=== PATIENT | male | born 1985 | race Caucasian/White ===

== ENCOUNTER 2018-02-10 19:30 | Emergency (ER) | payer OTHER ==
[~2018-02-10] VITALS: Ht 167.6 cm; Wt 81.6 kg
[2018-02-10 19:53] VITALS: BP 147/85
--- NOTE | 2018-02-10 19:58 | Emergency Room Report ---
History of Present Illness General Chief Complaint: Headache Source: Patient Present Illness HPI Patient has a history of migraine headaches. However patient has not had a migraine headache for over 2 years. Patient states that he began to develop acute onset of migraine headache starting early this morning. It progressively became worse. It was a gradual onset. He has photophobia associate nausea and vomiting. He denies any neck pain. Denies any fever. Patient has not had a headache this badly before. This seems to be worse than usual. He took some Imitrex at the onset of the headache but symptoms did not seem to improve. He denies any chest pain shortness of breath. No history of trauma. Symptoms noted to be severe.No other modifying factors. No other associated signs and symptoms. No other complaints were noted. Of note patient has not had recent radiographic studies. Allergies: Uncoded Allergies: DURACEF (Allergy, Unknown, 02/10/18) Patient History Past Medical History: migraines Past Surgical History: none Pertinent Family History: none Social History: Denies: smoking, alcohol use, drug use Reviewed Nursing Documentation: PMH: Agreed; PSxH: Agreed Nursing Documentation-PMH Past Medical History: No History, Except For Hx Hypertension: Yes Review of Systems All Other Systems: negative except mentioned in HPI Physical Exam Vital Signs Date Time Temp Pulse Resp B/P (MAP) Pulse Ox O2 Delivery O2 Flow Rate FiO2 02/10/18 19:41 99.1 94 16 152/99 96 Room Air 99.1 Sp02 EP Interpretation: reviewed, normal General Appearance: alert, moderate distress Head: normocephalic, atraumatic Eyes: bilateral eye normal inspection ENT: normal ENT inspection, hearing grossly normal, normal voice Neck: normal inspection, full range of motion, supple, no bony tend Respiratory: normal inspection, lungs clear, normal breath sounds, no respiratory distress, no retraction, no wheezing Cardiovascular #1: regular rate, rhythm, no edema Gastrointestinal: normal inspection, normal bowel sounds, non tender, soft, no guarding, no hernia Genitourinary: no CVA tenderness Musculoskeletal: normal inspection, back normal, normal range of motion Neurologic: normal inspection, alert, responsive, speech normal Psychiatric: normal inspection, judgement/insight normal, mood/affect normal Skin: normal inspection, normal color, no rash Medical Decision Making Diagnostic Impression: Primary Impression: Headache ER Course Patient presents emergency department today complaining of a headache. Differential considerations include acute intracranial injury, migraine headache , stroke just name a few. Given patient's presentation the fact that his headaches worsen usual and he has not had a recent CAT scan of felt that this is a typical headache for him and he required a CAT scan. MIPS: Patient presents complaining of a headache. This is a typical headache and not usual headache. Therefore CT scan was performed because this is a different headache than usual. Patient's head CT was interpreted radiology negative. Patient was given pain medications with improvement in symptoms.Given the patient feels much better, and he had a negative workup, I feel the patient can be discharged home.Patient is advised to follow up with primary doctor in 2-3 days and return the emergency room for any worsening symptoms and as needed. Last Vital Signs Date Time Temp Pulse Resp B/P (MAP) Pulse Ox O2 Delivery O2 Flow Rate FiO2 02/10/18 19:41 99.1 94 16 152/99 96 Room Air 99.1 Status: improved Disposition: HOME, SELF-CARE Condition: Stable Scripts Hydrocodone Bit/Acetaminophen 5-325* (NORCO 5-325*) 1 Each Tablet 1-2 TAB ORAL Q6H PRN for For Pain, #10 TAB 0 Refills Prov: Sylvester Ferro MD 02/10/18 Sylvester Ferro MD Feb 10, 2018 19:58
[2018-02-10] MEDS ORDERED: Metoclopramide 10mg/2ml Inj IVP ONE (20:00)
[2018-02-10] MEDS ORDERED: DiphenhydrAMINE 50mg/ml Inj IVP ONE (20:00)
[2018-02-10] MEDS ORDERED: Ketorolac 30mg Inj IV ONE (20:00)
[2018-02-10] MEDS ORDERED: NORCO 5-325 TA1 EACH ORAL (20:53)
[2018-02-10] MEDS ORDERED: Morphine Sulfate 2mg/ml Inj IVP ONE (21:00)
[2018-02-10 21:24] VITALS: BP 147/85
--- NOTE | 2018-02-11 09:49 | Diagnostic Imaging Report ---
Indications: Pain, history of migraine headaches, acute onset of migraine earlier this morning Technique: Spiral acquisitions obtained through the brain. Angled axial and coronal 5 x 5 mm slices were reconstructed. Total dose length product 1400.31 mGycm. CTDI vol(s) 70.38 mGy. Dose reduction achieved using automated exposure control Comparison: None. Findings: No acute intracranial hemorrhage nor edema. No mass effect nor midline shift. There is ethmoid sinus mucosal disease. The mastoids are clear. The calvarium is intact Impression: Negative for acute intracranial bleed or mass effect Minimal sinus disease This agrees with the preliminary interpretation provided overnight by Dr. Rosen The CT scanner at [facility] is accredited by the [employer] and the scans are performed using protocols designed to limit radiation exposure to as low as reasonably achievable to attain images of sufficient resolution adequate for diagnostic evaluation.
== END 2018-02-10 21:24 | disposition home or self-care (01) ==
LOC: EMR 19:49
DX: R51 Headache (principal); I10 Essential (primary) hypertension
CPT/HCPCS: 70450; 96361; 96374; 96375; 99284; J1200; J1885; J2270; J2765

== ENCOUNTER 2018-02-12 18:22 | Emergency (ER) | payer OTHER ==
[~2018-02-12] VITALS: Ht 167.6 cm; Wt 79.4 kg
[~2018-02-12 18:22] MED LIST: NORCO 5-325 TA1 EACH ORAL
[2018-02-12 18:40] VITALS: BP 146/80
[2018-02-12] MEDS ORDERED: Morphine Sulfate 4mg/ml Inj (IV/IM USE ONLY) IVP ONE (19:00)
[2018-02-12] MEDS ORDERED: Metoclopramide 10mg/2ml Inj IVP ONE (19:00)
[2018-02-12] MEDS ORDERED: Ketorolac 30mg Inj IV ONE (19:00)
--- NOTE | 2018-02-12 19:03 | Emergency Room Report ---
History of Present Illness General Chief Complaint: Headache Source: Patient Present Illness HPI 32-year-old male presents ED complaining of headache. Was seen 2 days ago in ER. Was treated for migraine and subsequently discharge. Patient was called back by ER physician to return to ED as his headache was not improving. History of migraines. States he normally takes Imitrex but states it is not helping. Pain is frontal, throbbing, 6 out of 10, nonradiating. Denies photophobia or blurry vision. Denies nausea or vomiting. Denies any neck stiffness. No other aggravating relieving factors. Denies any other associated symptoms Allergies: Uncoded Allergies: DURACEF (Allergy, Unknown, 02/10/18) Patient History Past Medical History: HTN, migraines Past Surgical History: none Pertinent Family History: none Social History: Denies: smoking, alcohol use, drug use Immunizations: UTD Reviewed Nursing Documentation: PMH: Agreed; PSxH: Agreed Nursing Documentation-PMH Past Medical History: No Stated History Hx Hypertension: Yes Review of Systems All Other Systems: negative except mentioned in HPI Physical Exam Vital Signs Date Time Temp Pulse Resp B/P (MAP) Pulse Ox O2 Delivery O2 Flow Rate FiO2 02/12/18 18:33 98.5 77 15 146/80 96 Room Air 98.4 Sp02 EP Interpretation: reviewed, normal General Appearance: normal inspection, non-toxic Head: normocephalic Eyes: bilateral eye normal inspection, bilateral eye PERRL ENT: normal ENT inspection Neck: full range of motion, no meningismus, no bony tend, supple/symm/no masses Respiratory: chest non-tender, lungs clear, normal breath sounds, speaking full sentences Cardiovascular #1: normal inspection Gastrointestinal: normal inspection Rectal: deferred Genitourinary: no CVA tenderness Musculoskeletal: normal inspection Neurologic: alert, oriented x3, responsive, toy painter III-XII nml as tested, motor strength/tone normal, sensory intact, speech normal Psychiatric: judgement/insight normal, memory normal, mood/affect normal, no suicidal/homicidal ideation Skin: normal inspection Lymphatic: normal inspection Medical Decision Making Diagnostic Impression: Primary Impression: Migraine Qualified Codes: G43.909 - Migraine, unspecified, not intractable, without status migrainosus ER Course Hospital Course 32 yo M presents to ED c/o headache. Was here 2 days ago but a migraine persisted Differential diagnoses include: tension headache, migraine, dehydration, intracranial bleed Clinical course Patient placed on stretcher. After initial history and physical I ordered labs , IV fluids, Reglan, Toradol and MRI Brain Labs reviewed- electrolytes okay, no leukocytosis, hemoglobin/hematocrit stable MRI Brain unremarkable Upon reassessment patient states pain has improved. Patient feels better wishes to go home. No fever. No photophobia. No nuchal rigidity. We will switch to ibuprofen, Fioricet. Stopped [place] as patient states it is not helping. Patient has an appointment with his PMD next week for neurology referral i. I feel this is a highly complex case requiring extensive working including EKG/Rhythm strip, Xray/CT/US, Blood/urine lab work, repeat exams while in ED, and administration of strong opiates/narcotics for pain control, admission to hospital or close patient follow up. Diagnosis - migraine stable and discharged to home with Rx Fioricet, Motrin. f/up with PMD/ neurology. return to ED if symptoms recur/worsen. Labs Test 02/12/18 19:00 White Blood Count 5.4 K/UL (4.8-10.8) Red Blood Count 5.65 M/UL (4.70-6.10) Hemoglobin 16.6 G/DL (14.2-18.0) Hematocrit 48.3 % (42.0-52.0) Mean Corpuscular Volume 85 FL (80-99) Mean Corpuscular Hemoglobin 29.4 PG (27.0-31.0) Mean Corpuscular Hemoglobin Concent 34.4 G/DL (32.0-36.0) Red Cell Distribution Width 10.1 % (11.6-14.8) Platelet Count 198 K/UL (150-450) Mean Platelet Volume 7.1 FL (6.5-10.1) Neutrophils (%) (Auto) 70.8 % (45.0-75.0) Lymphocytes (%) (Auto) 18.2 % (20.0-45.0) Monocytes (%) (Auto) 7.7 % (1.0-10.0) Eosinophils (%) (Auto) 2.4 % (0.0-3.0) Basophils (%) (Auto) 0.9 % (0.0-2.0) Sodium Level 138 MMOL/L (136-145) Potassium Level 4.1 MMOL/L (3.5-5.1) Chloride Level 101 MMOL/L (98-107) Carbon Dioxide Level 28 MMOL/L (21-32) Anion Gap 9 mmol/L (5-15) Blood Urea Nitrogen 9 mg/dL (7-18) Creatinine 0.9 MG/DL (0.55-1.30) Estimat Glomerular Filtration Rate > 60 mL/min (>60) Glucose Level 105 MG/DL (74-106) Calcium Level 9.6 MG/DL (8.5-10.1) Total Bilirubin 1.0 MG/DL (0.2-1.0) Aspartate Amino Transf (AST/SGOT) 11 U/L (15-37) Alanine Aminotransferase (ALT/SGPT) 28 U/L (12-78) Alkaline Phosphatase 70 U/L (46-116) Total Protein 7.9 G/DL (6.4-8.2) Albumin 4.2 G/DL (3.4-5.0) Globulin 3.7 g/dL Albumin/Globulin Ratio 1.1 (1.0-2.7) CT/MRI/US Diagnostic Results CT/MRI/US Diagnostic Results : Imaging Test Ordered: MRI Brain Impression no acute process Last Vital Signs Date Time Temp Pulse Resp B/P (MAP) Pulse Ox O2 Delivery O2 Flow Rate FiO2 02/12/18 18:58 98.4 02/12/18 18:40 77 15 146/80 96 Room Air Status: improved Disposition: HOME, SELF-CARE Condition: Stable Scripts Acetamin/Butalbital/Caffeine* (FIORICET*) 1 Ea Tab 1 TAB ORAL Q6H, #15 TAB 0 Refills Prov: Ed Shah MD 02/12/18 Ibuprofen* (MOTRIN*) 600 Mg Tablet 600 MG ORAL Q8H PRN for For Pain, #30 TAB 0 Refills Prov: Ed Shah MD 02/12/18 Ed Shah MD Feb 12, 2018 19:03
[2018-02-12 19:08] LABS: BASOPHILS % (AUTO) 0.9 % (0.0-2.0); EOSINOPHILS % (AUTO) 2.4 % (0.0-3.0); HEMATOCRIT 48.3 % (42.0-52.0); HEMOGLOBIN 16.6 G/DL (14.2-18.0); LYMPHOCYTES % (AUTO) 18.2 % (20.0-45.0); MEAN CORPUSCULAR VOLUME 85 FL (80-99); MONOCYTES % (AUTO) 7.7 % (1.0-10.0); NEUTROPHILS % (AUTO) 70.8 % (45.0-75.0); PLATELET COUNT 198 K/UL (150-450); RED BLOOD COUNT 5.65 M/UL (4.70-6.10); RED CELL DISTRIBUTION WIDTH 10.1 % (11.6-14.8); WHITE BLOOD COUNT 5.4 K/UL (4.8-10.8)
[2018-02-12 19:13] LABS: ANION GAP 9 mmol/L (5-15); BLOOD UREA NITROGEN 9 mg/dL (7-18); CALCIUM 9.6 MG/DL (8.5-10.1); CARBON DIOXIDE 28 MMOL/L (21-32); CHLORIDE 101 MMOL/L (98-107); CREATININE 0.9 MG/DL (0.55-1.30); POTASSIUM 4.1 MMOL/L (3.5-5.1); SODIUM 138 MMOL/L (136-145)
[2018-02-12 19:18] LABS: ALANINE AMINOTRANSFERASE 28 U/L (12-78); ALBUMIN 4.2 G/DL (3.4-5.0); ALBUMIN/GLOBULIN RATIO 1.1 (1.0-2.7); ALKALINE PHOSPHATASE 70 U/L (46-116); ASPARTATE AMINO TRANSFERASE 11 U/L (15-37)
[2018-02-12] MEDS ORDERED: FIORICET1 EA ORAL (20:17)
[2018-02-12] MEDS ORDERED: IBUPROFEN600 MG ORAL (20:17)
[2018-02-12 20:26] VITALS: BP 138/75
--- NOTE | 2018-02-13 08:44 | Diagnostic Imaging Report ---
Indication: Intense migraine headaches for 4 days, light sensitivity, nausea and vomiting Technique: sagittal T1 fast spin echo, axial T1 FLAIR, axial T2 FLAIR, axial T2 FS PROPELLER, axial T2* GRE, axial diffusion weighted images. ADC and exponential ADC maps generated Comparison: No comparison MRIs. Reference made to prior head CT dated 02/10/2018 Findings: No abnormal areas of restricted diffusion to suggest acute infarction. No acute hemorrhage or edema. No mass effect nor midline shift. Normal size ventricles and extra axial CSF spaces. Visualized orbits and sinuses are unremarkable. The vascular flow voids are preserved Impression: Negative This agrees with the preliminary interpretation provided overnight by Dr. Rosen
== END 2018-02-12 20:25 | disposition home or self-care (01) ==
LOC: EMR 18:45
DX: G43.909 Migraine, unspecified, not intractable, without status migrainosus (principal); I10 Essential (primary) hypertension; Z87.891 Personal history of nicotine dependence; Z88.8 Allergy status to other drugs, medicaments and biological substances
CPT/HCPCS: 36415; 70551; 80053; 85025; 96361; 96374; 96375; 99284; J1885; J2270; J2765